=== PATIENT | male | born 1985 | race Caucasian/White ===

== ENCOUNTER 2017-06-30 12:28 | Emergency (ER) | payer MEDICAID ==
[2017-06-30] MEDS: LIDOCAINE 1%/EPI 30 ML INJ INJ (13:27)
[2017-06-30] MEDS: morphine 4 MG/ML VIAL IV (13:28)
[2017-06-30] MEDS: SOD CHLORIDE 0.9% 1,000 ML IV (13:28)
[2017-06-30] MEDS: ONDANSETRON 4 MG INJ IV (13:28)
[2017-06-30] MEDS: DIPHTH/TET/ACEL PERTUSS (ADULT) 0.5 ML VIAL IM* (13:29)
[2017-06-30 13:48] LABS: ADD MAN DIFF? NO
[2017-06-30] MEDS: CEPHALEXIN 500 MG CAP PO (13:48)
[2017-06-30 13:49] LABS: WHITE BLOOD COUNT 10.3 10^3/ul (4.8-10.8)
[2017-06-30 13:49] LABS: BASOPHILS % 0.4 % (0.0-2.0); EOSINOPHILS # 0.1 10^3/ul (0.0-0.5); EOSINOPHILS % 0.5 % (0.0-7.0); HEMATOCRIT 42.4 % (42.0-52.0); HEMOGLOBIN 14.8 g/dl (14.0-18.0); LYMPHOCYTES # 2.1 10^3/ul (0.8-2.9); LYMPHOCYTES % 19.9 % (15.0-51.0); MEAN CORPUSCULAR HEMOGLOBIN 31.8 pg (29.0-33.0); MEAN CORPUSCULAR HGB CONC 34.9 g/dl (32.0-37.0); MEAN CORPUSCULAR VOLUME 91.2 fl (82.0-101.0); MEAN PLATELET VOLUME 9.1 fl (7.4-10.4); MONOCYTE # 0.7 10^3/ul (0.3-0.9); MONOCYTES % 6.3 % (0.0-11.0); NEUTROPHIL # 7.5 10^3/ul (1.6-7.5); NEUTROPHILS % 72.4 % (39.0-77.0); PLATELET COUNT 267 10^3/UL (140-415); RED BLOOD COUNT 4.65 10^6/ul (4.70-6.10)
[2017-06-30 14:05] LABS: INR 0.96; PROTIME 12.8 Sec (12.2-14.2)
[2017-06-30 14:06] LABS: PARTIAL THROMBOPLASTIN TIME 24.5 Sec (25.0-35.0)
[2017-06-30 14:10] LABS: ANION GAP 16 (8-16); BLOOD UREA NITROGEN 14 mg/dl (7-20); CALCIUM 8.4 mg/dl (8.4-10.2); CARBON DIOXIDE 27 mmol/L (21-31); CHLORIDE 103 mmol/L (97-110); CREATININE 0.95 mg/dl (0.61-1.24); GLUCOSE 129 mg/dl (70-220); POTASSIUM 3.3 mmol/L (3.5-5.1); SODIUM 143 mmol/L (135-144)
[2017-06-30 14:23] LABS: TROPONIN-I < 0.012 ng/ml (0.00-0.12)
[2017-06-30] MEDS: POTASSIUM CHLORIDE (SR) 20 MEQ TAB PO (14:34)
== END 2017-06-30 15:24 | disposition home or self-care (01) ==
LOC: E/R 12:28
DX: S51.812A Laceration without foreign body of left forearm, initial encounter (principal); R07.9 Chest pain, unspecified; W26.0XXA Contact with knife, initial encounter; Y92.89 Other specified places as the place of occurrence of the external cause; Z23 Encounter for immunization
CPT/HCPCS: 12002; 36415; 71010; 80048; 84484; 85025; 85610; 85730; 86850; 86900; 86901; 90471; 90715; 93005; 96374; 96375; 99291-25